=== PATIENT | male | born 1985 | race Two or more races ===

== ENCOUNTER 2018-09-17 09:23 | Emergency (ER) | payer OTHER ==
[~2018-09-17] VITALS: Ht 180.3 cm; Wt 101.0 kg
[2018-09-17 09:31] VITALS: BP 110/72
== END 2018-09-17 11:02 | disposition home or self-care (01) ==
LOC: ED 11:00
DX: S53.441A Ulnar collateral ligament sprain of right elbow, initial encounter (principal); X58.XXXA Exposure to other specified factors, initial encounter; Y93.89 Activity, other specified; Y92.89 Other specified places as the place of occurrence of the external cause; Y99.8 Other external cause status
CPT/HCPCS: 99283

== ENCOUNTER 2018-10-26 17:17 | Emergency (ER) | payer OTHER ==
[~2018-10-26] VITALS: Ht 180.3 cm; Wt 100.7 kg
[2018-10-26 17:22] VITALS: BP 130/83
[2018-10-26] MEDS ORDERED: LIDOCAINE 1%-EPI 1:100K, 20ML SQ ONE (17:30)
[2018-10-26] MEDS ORDERED: DIPH,PERTUSS(ACELL),TET VAC/PF 0.5 ML IM-VACC ONE ×2 (17:30→17:38)
[2018-10-26] MEDS ORDERED: LIDOCAINE-MPF 1%, 5ML ONE (17:37)
[2018-10-26] MEDS ORDERED: LIDOCAINE 1%-EPI 1:100K, 20ML ONE (17:38)
--- NOTE | 2018-10-26 19:25 | NUR ---
BREAK RN: Shonda QUIROZ, at bedside for procedure [email or web address] dressing.
== END 2018-10-26 19:43 | disposition home or self-care (01) ==
LOC: ED 17:49
DX: S61.441A Puncture wound with foreign body of right hand, initial encounter (principal); X58.XXXA Exposure to other specified factors, initial encounter; Y93.89 Activity, other specified; Y92.410 Unspecified street and highway as the place of occurrence of the external cause; Y99.8 Other external cause status
CPT/HCPCS: 10120; 90471; 90715